=== PATIENT | female | born 1955 | race Caucasian/White ===

== ENCOUNTER 2021-03-13 08:12 | Outpatient (CLI) | payer BC ==
[2021-03-13 10:18] LABS: Hemoglobin 14.1 g/dL (12.0-15.5); Mean Corpuscular HGB CONC 31.9 g/dL (32.0-36.0); Mean Corpuscular Volume 90.8 fl (81.6-98.3); Platelet Count 241 10x3/uL (150-450); RBC Distribution Width 13.1 % (11.5-14.5); Red Blood Cell (RBC) Count 4.87 10x6/uL (3.90-5.03); White Blood Cell (WBC) Count 5.6 10x3/uL (3.5-10.5)
[2021-03-13 10:42] LABS: PTT 29.1 sec (22.0-33.0); Prothrombin Time 11.1 sec (9.5-12.1)
[2021-03-13 10:49] LABS: Anion Gap 12 mmol/L (10-20); BUN (Urea Nitrogen) 10 mg/dL (9.8-20.1); Calc. Creatinine Clearance 0 mL/min (70-130); Calcium 8.9 mg/dL (7.8-10.44); Carbon Dioxide 28 mmol/L (23-31); Chloride 105 mmol/L (98-107); Glucose 83 mg/dL (80-115); Sodium 141 mmol/L (136-145)
== END 2021-03-13 08:13 | disposition home or self-care (01) ==
LOC: LABBT 08:12
PROVIDERS: ATTEND Internal Medicine Cardiovascular Disease
DX: Z01.812 Encounter for preprocedural laboratory examination (principal); I48.0 Paroxysmal atrial fibrillation; Z20.822 Contact with and (suspected) exposure to COVID-19
CPT/HCPCS: 80048; 85027; 85610; 85730

== ENCOUNTER 2021-05-06 10:09 | Outpatient (CLI) | payer BC ==
[2021-05-06 13:06] LABS: Hemoglobin 13.8 g/dL (12.0-15.5); Mean Corpuscular HGB CONC 32.1 g/dL (32.0-36.0); Mean Corpuscular Hemoglobin 29.4 pg (27.0-33.0); Mean Corpuscular Volume 91.7 fl (81.6-98.3); Mean Platelet Volume 10.6 fl (7.4-10.4); Platelet Count 232 10x3/uL (150-450); RBC Distribution Width 12.8 % (11.5-14.5); Red Blood Cell (RBC) Count 4.69 10x6/uL (3.90-5.03); White Blood Cell (WBC) Count 5.3 10x3/uL (3.5-10.5)
[2021-05-06 13:33] LABS: Anion Gap 14 mmol/L (10-20); BUN (Urea Nitrogen) 11 mg/dL (9.8-20.1); Calc. Creatinine Clearance 0 mL/min (70-130); Calcium 8.9 mg/dL (7.8-10.44); Carbon Dioxide 27 mmol/L (23-31); Chloride 104 mmol/L (98-107); Glucose 79 mg/dL (80-115); Potassium 3.9 mmol/L (3.5-5.1); Sodium 141 mmol/L (136-145)
[2021-05-06 13:36] LABS: PTT 29.8 sec (22.0-33.0); Prothrombin Time 11.5 sec (9.5-12.1)
== END 2021-05-06 10:10 | disposition home or self-care (01) ==
LOC: LABBT 10:09
PROVIDERS: ATTEND Internal Medicine Cardiovascular Disease
DX: Z01.812 Encounter for preprocedural laboratory examination (principal); I48.0 Paroxysmal atrial fibrillation
CPT/HCPCS: 80048; 85027; 85610; 85730

== ENCOUNTER 2021-05-08 06:15 | Day surgery (SDC) | payer BC ==
[2021-05-02 14:32] VITALS: BMI 35.7
[2021-05-08] MEDS ORDERED: Heparin 10,000 UNITS/ 10 ML VIAL ONE (06:35)
[2021-05-08] MEDS ORDERED: Isoproterenol 0.2 MG/1 ML AMP ONE ×2 (06:35→07:13)
[2021-05-08] MEDS ORDERED: Heparin 25,000 units/D5W 500 ML ONE (06:35)
[2021-05-08] MEDS ORDERED: PHENYLEPHRINE-NS 100 MCG/ML 10 ML SYRINGE ONE (07:21)
[2021-05-08] MEDS ORDERED: Ondansetron PF 4 MG/2 ML Vial ONE (07:21)
[2021-05-08] MEDS ORDERED: PROPOFOL 200 MG/20 ML VIAL ONE (07:21)
[2021-05-08] MEDS ORDERED: Rocuronium Bromide 10 MG/ML (10ML VIAL) ONE (07:21)
[2021-05-08] MEDS ORDERED: Dexamethasone 20 MG/5 ML VIAL ONE (07:21)
[2021-05-08] MEDS ORDERED: Lidocaine 1% PF 5 ML VIAL ONE (07:21)
[2021-05-08] MEDS ORDERED: Midazolam HCl 2 mg/2 ml Vial ONE (07:24)
[2021-05-08] MEDS ORDERED: Fentanyl 250 MCG/5 ML VIAL ONE (07:24)
[2021-05-08] MEDS ORDERED: Famotidine/PF 20 mg/2ml Vial ONE (07:25)
[2021-05-08] MEDS ORDERED: Protamine Sulfate 50 MG/5 ML VIAL ONE (10:25)
[2021-05-08] MEDS ORDERED: SUGAMMADEX SODIUM 200 MG/2 ML VIAL ONE (10:52)
== END 2021-05-08 15:47 | disposition home or self-care (01) ==
LOC: SDC 06:15
PROVIDERS: ATTEND Internal Medicine Cardiovascular Disease
PROC: B244ZZZ Ultrasonography of Right Heart (ICD-10-PCS; principal; 2021-05-08)
PROC: 02583ZZ Destruction of Conduction Mechanism, Percutaneous Approach (ICD-10-PCS; principal; 2021-05-08)
PROC: 4A023FZ Measurement of Cardiac Rhythm, Percutaneous Approach (ICD-10-PCS; principal; 2021-05-08)
PROC: 4A0234Z Measurement of Cardiac Electrical Activity, Percutaneous Approach (ICD-10-PCS; principal; 2021-05-08)
PROC: 02K83ZZ Map Conduction Mechanism, Percutaneous Approach (ICD-10-PCS; principal; 2021-05-08)
DX: I48.0 Paroxysmal atrial fibrillation (principal); I11.9 Hypertensive heart disease without heart failure; I08.3 Combined rheumatic disorders of mitral, aortic and tricuspid valves; I47.1 Supraventricular tachycardia; Z86.16 Personal history of COVID-19; Z79.01 Long term (current) use of anticoagulants; Z79.899 Other long term (current) drug therapy
CPT/HCPCS: 85347; 93005; 93010; 93613; 93623; 93656; 93662; C1732; C1759; C1776; J1100; J1644; J2250; J2405; J2704; J2720; J3010; S0028